=== PATIENT | female | born 1955 | race African-American/Black ===

== ENCOUNTER → 2019-07-16 | Outpatient (CLI) | payer OTHER ==
[~2019-07-16] VITALS: Ht 165.1 cm; Wt 80.7 kg
[~2019-07-16] MED LIST: AMLODIPINE BESY10 MG PO; CALCIUM500 MG PO; CRESTOR5 MG PO; FISH OIL 1,0001 EAC9 PO; IBUPROFEN 600600 M1 PO; LEVO-T50 MCG PO; LEVOXYL75 MCG PO; NEXIUM 40 MG CA40 M1 PO; VITAMIN D325 MC3 PO
--- NOTE | 2019-07-17 15:05 | P ---
[facility] [address] PROCEDURE REPORT Name: CRISTIANA MERA Room #: REG ANNI Nhan#: [id number] Admission: 07/16/19 Attend Phys: Greg Post Discharge: Date of : 51 Report #: [id number] THIS REPORT FOR: cc: Kristy Laureano MD,Greg Holbrook MD, MD ~ CC: Greg Laureano MD PROCEDURE PERFORMED: Upper endoscopy with biopsies and esophageal dilation. HISTORY OF PRESENT ILLNESS: The patient is a 63-year-old female with a history of gastroesophageal reflux disease, currently taking Nexium on a daily basis complains of dysphagia, also intermittent heartburn symptoms despite being on PPI therapy. She also has a history of colon polyps. Plan is for EGD and colonoscopy today. DESCRIPTION OF PROCEDURE: The risks and benefits of the procedure were explained to the patient, those risks including but not limited to bleeding, perforation and the risk of sedation. She understood these risks and gave informed consent. Sedation was given using propofol per anesthesia. Next, using a standard Olympus upper endoscope, the scope was placed in the patient's mouth and advanced under direct vision through the esophagus, stomach and into the second portion of the duodenum. The larynx was normal in appearance. The esophagus was normal. The GE junction was normal. No evidence of stricture or esophagitis. Upon entering the stomach, there appears to be a large hiatal hernia. Overall, the gastric mucosa was normal. Biopsies were obtained to rule out the possibility of H. pylori. The pylorus was normal and patent. The duodenal bulb, first and second portion were all normal. Biopsies were also obtained to rule out the possibility of celiac sprue. The scope was then brought back up into the patient's stomach and a Savary guidewire was inserted through the scope, leaving the guidewire in place as the scope was then withdrawn. Next, a 48-Jordanian Savary dilation of the esophagus was then performed without difficulty. The wire and dilator were removed. The scope was reintroduced into the patient's stomach. There was no evidence of mucosal tear after dilation. The scope was then withdrawn and the procedure terminated. The patient tolerated the procedure well. IMPRESSION: 1. Appears to have a large hiatal hernia. This may be causing increased reflux and dysphagia. 2. Otherwise, normal upper endoscopy. RECOMMENDATIONS: 1. Await biopsy results. 2. Observe the patient post-dilation. [address] [address] PROCEDURE REPORT Name: [facility]STIA[facility] MER[id number]: [facility]/16/19 Attend Phys: Greg Post Discharge: Date of : 51 Report #: [id number] 3. We will proceed with an upper GI. 4. For further evaluation, hiatal hernia. 5. We will proceed with colonoscopy next today. Thank you for allowing me to participate in her care. <ELECTRONICALLY SIGNED> By: Greg Marcum MD 07/17/19 1505 1005 1101 Greg Marcum MD /nt
--- NOTE | 2019-07-17 15:05 | P ---
[facility] [place] [address] PROCEDURE REPORT Name: CRISTIANA MERA Room #: REG ANNI Nhan#: [id number] Admission: 07/16/19 Attend Phys: Greg Post Discharge: Date of : 51 Report #: [id number] THIS REPORT FOR: cc: Kristy Laureano MD,Greg Holbrook MD, MD ~ CC: Greg Laureano MD DATE OF SERVICE: 07/16/2019 PROCEDURE PERFORMED: Colonoscopy. HISTORY OF PRESENT ILLNESS: The patient is a 63-year-old female with a history of colon polyps. She denies any symptoms. Bowel movements have been normal. No family history of colon cancer. DESCRIPTION OF PROCEDURE: The risks and benefits of the procedure were explained to the patient, those risks including but not limited to bleeding, perforation and the risk of sedation. She understood these risks and gave informed consent. Sedation was given using propofol per anesthesia. Next, a digital rectal exam was initially performed, which was normal. Next, using a standard Olympus colonoscope, the scope was placed in the patient's anus and advanced under direct vision to the cecum. The overall prep was excellent. The cecum and ileocecal valve were normal in appearance. The ascending, transverse, descending and sigmoid colon were all normal. The rectal mucosa was normal. On retroflexion, small nonbleeding internal hemorrhoids were noted, otherwise normal colonoscopy. The scope was then withdrawn and the procedure terminated. The patient tolerated the procedure well. IMPRESSION: 1. Small internal hemorrhoids. 2. Otherwise, normal colonoscopy. RECOMMENDATIONS: Repeat colonoscopy in 10 years. Thank you for allowing me to participate in her care. <ELECTRONICALLY SIGNED> By: Greg Marcum MD 07/17/19 1505 1007 1011 Greg Marcum MD /nt
--- NOTE | 2019-07-17 15:07 | PATH ---
[facility] [place] [address] PATHOLOGY RPT PROCEDURE Name: JANET HARTMAN ELI Room #: REG ANNI Marta.#: [id number] Admission: 07/16/19 Date of : 51 Discharge: Report #: [id number] Path Case #: [id number] [facility] Accession Number: [id number] . 01 Material submitted: . PART A: duodenum - BIOPSY OF DUODENAL R/O SPRUE PART B: stomach - GASTRIC BIOPSY R/O H. PYLORI . 01 Clinical history: . Pre-op diagnosis: GERD; dysphagia; history of polyps Post-op diagnosis: Hemorrhoids; hiatal hernia A. R/O sprue B. R/O H. pylori . 02 Diagnosis: A. Small bowel mucosa, duodenum R/O sprue, endoscopic biopsy: - No diagnostic abnormalities present. - Negative for villous blunting or increase in intraepithelial lymphocytes. . B. Gastric mucosa, gastric R/O H. pylori, endoscopic biopsy: - Mild reactive gastropathy. - Negative for intestinal metaplasia or atrophy. - Negative for Helicobacter pylori (properly controlled immunohistochemical stain performed). . (IUV:mindy; 07/17/2019) QMS 07/17/2019 1336 Local . 02 Electronically signed: . Carmenza Sainz MD, Pathologist NPI- [id number] . 01 Gross description: . A. The specimen is received in formalin, labeled "Janet Hartman, biopsy of duodenal, R/O sprue". Received are four segments of pale snyder soft tissue ranging in size from 0.2 to 0.6 cm in maximum dimensions. The specimen is submitted entirely in cassette A1. . B. The specimen is received in formalin, labeled "Janet Hartman, gastric biopsy, R/O H. pylori". Received are four segments of pale snyder soft tissue ranging in size from 0.2 to 0.6 cm in maximum dimensions. The specimen is submitted entirely in cassette B1. (CAA; 07/16/2019) QAC/QAC 07/16/2019 1657 Local . 02 Pathologist provided ICD-10: [address] [address] PATHOLOGY RPT PROCEDURE Name: JANET HARTMAN Room #: REG CLI Nhan#: [id number] Admission: 07/16/19 Date of : 51 Discharge: Report #: [id number] Path Case #: [id number] K31.9, K44.9, K64.9 . 02 CPT . 910953, [id number], [id number] Specimen Comment: A courtesy copy of this report has been sent to [phone], [phone] Specimen Comment: [id number] Specimen Comment: Report sent to / DR JAMES Performed at: [address] [facility], [place], [place] [id number] MD Ernst Keith MD Phone: [phone] Performed at: [address] [facility] [id number] MD Carmenza Sainz MD Phone: [phone]
== END | disposition home or self-care (01) ==
LOC: GI 08:11
DX: Z12.11 Encounter for screening for malignant neoplasm of colon (principal); Z86.010 Personal history of colon polyps; K64.8 Other hemorrhoids; K31.9 Disease of stomach and duodenum, unspecified; K44.9 Diaphragmatic hernia without obstruction or gangrene; R13.10 Dysphagia, unspecified; I10 Essential (primary) hypertension; E78.00 Pure hypercholesterolemia, unspecified; K21.9 Gastro-esophageal reflux disease without esophagitis; Z90.710 Acquired absence of both cervix and uterus; Z98.890 Other specified postprocedural states; Z79.899 Other long term (current) drug therapy
CPT/HCPCS: 43248; 43239; G0105; 62110; 62900

== ENCOUNTER → 2019-09-05 | Outpatient (CLI) | payer OTHER | LOC: RAD 09:35 | PROVIDERS: ATTEND Specialist | DX: K21.9 Gastro-esophageal reflux disease without esophagitis (principal); K44.9 Diaphragmatic hernia without obstruction or gangrene ==